=== PATIENT | male | born 1975 ===

== ENCOUNTER 2018-02-05 22:26 | Inpatient (IN) | payer OTHER, MEDICAID ==
[2018-02-06 00:05] LABS: BASO % 0.4 % (0.0-2.0); EOS # 0.1 K/uL (0.0-0.7); EOS % 0.6 % (0.0-4.0); HEMOGLOBIN 17.1 g/dL (12.0-18.0); LYMPH # 1.8 K/uL (1.0-4.3); LYMPH % 17.9 % (20.0-40.0); MEAN CORPUSCULAR HEMOGLOBIN 29.2 pg (27.0-31.0); MEAN PLATELET VOLUME 9.8 fl (7.2-11.7); MONO # 0.8 K/uL (0.0-0.8); MONO % 8.3 % (0.0-10.0); NEUT # 7.3 K/uL (1.8-7.0); NEUT % 72.8 % (50.0-75.0); NRBC % 0.4 % (0.0-0.0); RBC 5.84 Mil/uL (4.40-5.90); RED CELL DISTRIBUTION WIDTH 13.4 % (11.5-14.5); WHITE BLOOD COUNT 9.9 K/uL (4.8-10.8)
[2018-02-06 00:12] LABS: ALB/GLOB RATIO 1.2 (1.0-2.1); ALBUMIN 5.3 g/dL (3.5-5.0); ALT/SGPT 63 U/L (21-72); AST/SGOT 45 U/L (17-59); BLOOD UREA NITROGEN 19 mg/dl (9-20); CALCIUM 10.5 mg/dL (8.4-10.2); GFR NON-AFRICAN AMERICAN > 60
[2018-02-06 00:49] LABS: BARBITURATES, UR NEGATIVE (NEGATIVE); BENZODIAZEPINES, UR POSITIVE (NEGATIVE); OPIATES, UR NEGATIVE (NEGATIVE); PHENCYCLIDINE, UR NEGATIVE (NEGATIVE)
--- NOTE | 2018-02-06 01:11 | ED PDOC ---
HPI: Chest Pain Time Seen by Provider: 02/05/18 22:57 Chief Complaint (Nursing): Chest Pain Chief Complaint (Provider): Chest Pain History Per: Patient History/Exam Limitations: no limitations Additional Complaint(s): 42 y/o male presents to the ED complaining of chest pain. Patient had a traumatic injury and has been on disability since. 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 Patient reports he is currently seeing a therapist. He states his mood is explosive and labile with poor sleep patterns on suicidal thoughts, no plan. Patient attributes most of his frustration to having to endure the process to get his disability benefits. 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 Patient reports he had chest pain prior to arrival and took Xanax with some relief. He spoke to his therapist who advised him to come to ED. Past Medical History Reviewed: Historical Data, Nursing Documentation, Vital Signs Vital Signs: Last Vital Signs Temp 97.2 F L 02/05/18 22:34 Pulse 98 H 02/05/18 22:34 Resp 16 02/05/18 22:34 BP 144/93 H 02/05/18 22:34 Pulse Ox 98 02/05/18 22:34 - Medical History PMH: Chronic Pain (Headaches) - Surgical History Surgical History: Back Surgery (Spinal fusion lumbar spine) Other surgeries: Nose surgery - Family History Family History: States: Unknown Family Hx - Social History Current smoker - smoking cessation education provided: No Alcohol: None Drugs: Denies - Home Medications Home Medications: Ambulatory Orders Medication Instructions Recorded RX: Ciprofloxacin [Cipro] 500 mg PO BID 10/14/14 traMADol [Ultram] 50 mg PO Q6 #16 tab 10/14/14 - Allergies Allergies/Adverse Reactions: Allergies Allergy/AdvReac Type Severity Reaction Status Date / Time No Known Allergies Allergy Verified 02/05/18 22:34 Review of Systems ROS Statement: Except As Marked, All Systems Reviewed And Found Negative Cardiovascular: Positive for: Chest Pain Physical Exam - Reviewed Nursing Documentation Reviewed: Yes Vital Signs Reviewed: Yes - Physical Exam Appears: Positive for: Well, Non-toxic, No Acute Distress Head Exam: Positive for: ATRAUMATIC, NORMOCEPHALIC Skin: Positive for: Normal Color, Warm, DRY Eye Exam: Positive for: EOMI, Normal appearance, PERRL Neck: Positive for: Normal, Painless ROM, Supple Cardiovascular/Chest: Positive for: Regular Rate, Rhythm. Negative for: Murmur Respiratory: Positive for: Normal Breath Sounds. Negative for: Respiratory Distress Gastrointestinal/Abdominal: Positive for: Normal Exam, Soft. Negative for: Tenderness Back: Positive for: Normal Inspection. Negative for: L CVA Tenderness, R CVA Tenderness, Vertebral Tenderness Extremity: Positive for: Normal ROM. Negative for: Pedal Edema, Deformity Neurologic/Psych: Positive for: Alert, Oriented, Mood/Affect (Flat). Negative for: Motor/Sensory Deficits - Laboratory Results Result Diagrams: 02/05/18 23:45 02/05/18 23:45 - ECG O2 Sat by Pulse Oximetry: 98 (RA) Pulse Ox Interpretation: Normal Medical Decision Making Medical Decision Making: Time: 23:41 Initial Impression: 42 y/o with suicidal ideation Initial Plan: * EKG * Alcohol serum * CMP * Drug screen * Troponin * CBC w/ diff * Reglan 03:50 Labs reviewed no clinically significant abnormalities. Patient was evaluated by crisis and will be admitted for acute depression. Patient is medically stable for psychiatric admission. Scribe Attestation: Documented by Diego Lin acting as a scribe for Matthew Franco MD. Provider Scribe Attestation: All medical record entries made by the Scribe were at my direction and personally dictated by me. I have reviewed the chart and agree that the record accurately reflects my personal performance of the history, physical exam, medical decision making, and the department course for this patient. I have also personally directed, reviewed, and agree with the discharge instructions and disposition. Disposition - Clinical Impression Clinical Impression: Depression - Patient ED Disposition Is Patient to be Admitted: Yes - Disposition Disposition Time: 03:50 Condition: STABLE
[2018-02-06 08:19] VITALS: O2SAT 96
--- NOTE | 2018-02-06 08:34 | RAD ---
Date of service: 02/06/2018 HISTORY: admit COMPARISON: Chest radiographs 10/14/2014. FINDINGS: LUNGS: No active pulmonary disease. PLEURA: No significant pleural effusion identified, no pneumothorax apparent. CARDIOVASCULAR: No aortic atherosclerotic calcification present. Normal cardiac size. No pulmonary vascular congestion. OSSEOUS STRUCTURES: No significant abnormalities. VISUALIZED UPPER ABDOMEN: Normal. OTHER FINDINGS: None. IMPRESSION: No interval acute cardiopulmonary disease appreciated.
[2018-02-06] MEDS ORDERED: Magnesium Hydroxide Susp 30 ml UD PO PRN (09:22)
[2018-02-06] MEDS ORDERED: DiphenhydrAMINE 50 mg/ml Inj IM PRN (09:22)
[2018-02-06] MEDS ORDERED: Alum-Mag Hydrox-Simethicone Susp (30 mL) PO PRN (09:22)
--- NOTE | 2018-02-06 11:37 | PCM.PSYCH ---
Initial Psychiatric Evaluation - Initial Psychiatric Evaluation Type of Admission: Voluntary Legal Status: Capacity Chief Complaint (in patient's own words): "I'm depressed." Patient's Reaction to Hospitalization: HPI: 42 yo male w/ h/o depression, presents w/ worsening depression, suicidal ideation w/o current plan, sleep/appetite disturbances, hopelessness and chronic pain. He reports that his stressors include having to return back to work due to his workman's comp ending. He reports feeling anxious. Denies AH/VH/paranoia/HI. Collateral from ER: CW spoke to pt's , Belia BillOwurqmd-[phone], who stated pt has changed s kourtney his injury at work. She stated pt is very depressed and has been expressing SI. She stated pt's psychologist cleared her day yesterday just to give time to him due to him feeling SI and stated it was pt's psychologist who encouraged pt to come to ED. She stated pt has been withdrawn and does not do much anymore. She stated pt was doing two jobs and going to the gym, however, not he cannot do those things anymore. She stated she does not want him home in this condition and stated he needs psych admission. PPHx: No past psychiatric admission, h/o suicide attempt by attempting to jump in front of a truck. Currently prescribed Cymbalta, Wellbutrin, Amphetamine Salt, Xanax, Ambien, and Topamax (for headaches) by Dr. Kim PMHx: H/o falling 4 stories last year, tinnitis, chronic headaches/migraines ALL: NKDA FHx: Denies family history of mental illness SHx: Lives w/ and step son; denies drugs/etoh/cig use; on disability Current Medications: Active Medications Generic Name Dose Route Start Last Admin Trade Name Freq PRN Reason Stop Dose Admin Acetaminophen 650 mg 02/06/18 09:22 Tylenol 325mg Tab PO Q4 PRN Pain, moderate (4-7) Al Hydrox/Mg Hydrox/Simethicone 30 ml 02/06/18 09:22 Maalox Plus 30 Ml PO Q4 PRN Dyspepsia Diphenhydramine HCl 50 mg 02/06/18 09:22 Benadryl IM Q6 PRN Extrapyramidal S/S Unable PO Diphenhydramine HCl 50 mg 02/06/18 09:22 Benadryl PO Q6 PRN Extrapyramidal Symptoms Haloperidol 5 mg 02/06/18 09:22 Haldol PO Q4 PRN Agitation Haloperidol Lactate 5 mg 02/06/18 09:22 Haldol IM Q4 PRN Agitation, Unable to Take PO Lorazepam 2 mg 02/06/18 09:22 Ativan IM Q4 PRN Anxiety/Agitation,Unable PO Lorazepam 1 mg 02/06/18 09:24 Ativan PO Q6 PRN Anxiety Magnesium Hydroxide 30 ml 02/06/18 09:22 Milk Of Magnesia PO HS PRN Constipation Past Psychiatric History - Past Psychiatric History Pertinent Medical Hx (Current Medical&Sleep Prob, Allergies): Allergies Allergy/AdvReac Type Severity Reaction Status Date / Time No Known Allergies Allergy Verified 02/05/18 22:34 Alprazolam [Xanax] 0.5 mg PO BID PRN 02/06/18 Amphetamine Salt Combination [Adderall] 10 mg PO DAILY 02/06/18 DULoxetine [Cymbalta] 20 mg PO DAILY 02/06/18 Omeprazole 20 mg PO QAM 02/06/18 Topiramate [Trokendi Xr] 50 mg PO DAILY 02/06/18 Zolpidem Tartrate [Ambien] 12.5 mg PO HS 02/06/18 buPROPion SR [Wellbutrin SR 150 MG] 1 tab PO DAILY 02/06/18 Review of Systems - Psychiatric Psychiatric: Abnormal Sleep Pattern, Anhedonia, Anxiety, Change in Appetite, Depression, Difficulty Concentrating, Hopelessness, Irritability, Suicidal Ideation Mental Status Examination - Personal Presentation Personal Presentation: Looks stated age - Affect Affect: Constricted, Depressed - Motor Activity Motor Activity: Calm - Reliability in Providing Information Reliability in Providing Information: Fair - Speech Speech: Organized, Coherent - Mood Mood: Depressed - Formal Thought Process Formal Thought Process: No Impairment - Hallucinations/Delusions Additional comments: NO AH/VH/paranoia/delusions - Obsessions/Compulsions Obsessions: No Compulsions: No - Cognitive Functions Orientation: Person, Place, Situation, Time Sensorium: Alert Judgement: Intact, as evidence by: Insight regarding need for hospitalization Memory: Recent intact, as evidence by: Ability to recall events of the day - Risk Risk: Suicidal - Strength & Assets Inventory Strength & Assets Inventory: Family support, Cooperative DSM 5 DX - DSM 5 DSM 5 Diagnosis: Major Depressive Disorder - Recommended/Plan of Treatment Treatment Recommendations and Plan of Treatment: Major Depressive Disorder -Admit to psychiatry unit -Individual and group therapy -Psychoeducation -Increase Cymbalta, continue Wellbutrin -Continue Topamax for migraines -Hold Amphetamine and Xanax; can given Ativan PRN anxiety -Medicine consult -Disposition planning Projected ELOS: 7-10 days Discharge Plan and Discharge Criteria: Discharge when patient is psychiatrically stable - Smoking Cessation Smoking Cessation Initiated: No Reason for not providing: Not indicated
[2018-02-06] MEDS ORDERED: Pneumococcal 23-Valent Vaccine IM ONE (13:08)
--- NOTE | 2018-02-06 13:40 | CP.PCM.CON ---
History of Present Illness - History of Present Illness History of Present Illness: Chief Complaint : admitted to Psych bec of Suicidal ideation Hospitalist consulted to help manage medical problems HPI: 42 y/o gent with Hx of Work related Injury ( fall ) sustained injuries to his spine, knees and he also fractured his nose , s/p Lumbar Fusion , Nasal Bone Sx, was admitted for Depression and suicidal ideation. Patient states that since he had his Injuries and surgery , he has just been home and feels unproductive. He suffers from Chronic pain and this made him not able to do activities he used to do. Review of Systems - Review of Systems All systems: reviewed and no additional remarkable complaints except - Constitutional Constitutional: absent: Chills, Fever - EENT Eyes: absent: Change in Vision Ears: absent: Decreased Hearing, Ear Discharge Nose/Mouth/Throat: Nasal Trauma - Cardiovascular Cardiovascular: absent: Chest Pain, Dyspnea, Dyspnea on Exertion, Edema - Respiratory Respiratory: absent: Cough, Dyspnea, Hemoptysis - Gastrointestinal Gastrointestinal: absent: Abdominal Pain, Nausea, Vomiting - Genitourinary Genitourinary: absent: Dysuria, Hematuria - Musculoskeletal Musculoskeletal: Arthralgias, Back Pain, Myalgias, Stiffness - Integumentary Integumentary: absent: Rash - Neurological Neurological: absent: Dizziness, Headaches, Syncope - Psychiatric Psychiatric: Abnormal Sleep Pattern, Depression - Endocrine Endocrine: absent: Polydipsia, Polyphagia, Polyuria - Hematologic/Lymphatic Hematologic: absent: Easy Bleeding, Easy Bruising Past Patient History - Tetanus Immunizations Tetanus Immunization: Unknown - Past Medical History & Family History Past Medical History?: Yes Past Family History: Reviewed and not pertinent - Past Social History Smoking Status: Never Smoked Chewing Tobacco Use: No Cigar Use: No Alcohol: None Drugs: Denies Home Situation {Lives}: With Family Domestic Violence: Negative - CARDIAC Hx Cardiac Disorders: No Hx Hypertension: No - PULMONARY Hx Tuberculosis: No - NEUROLOGICAL HX Cerebrovascular Accident: No Hx Seizures: No Other/Comment: Lumbar Laminectomy - [facility] - HEENT Other/Comment: nose resconstruction - RENAL Hx Chronic Kidney Disease: No - ENDOCRINE/METABOLIC Hx Endocrine Disorders: No - HEMATOLOGICAL/ONCOLOGICAL Hx Blood Disorders: No Hx Cancer: No Hx Human Immunodeficiency Virus (HIV): No - INTEGUMENTARY Hx Dermatological Problems: No - MUSCULOSKELETAL/RHEUMATOLOGICAL Hx Falls: Yes (work accident) Hx Herniated Disk: Yes - GASTROINTESTINAL Hx Gastrointestinal Disorders: No - GENITOURINARY/GYNECOLOGICAL Hx Sexually Transmitted Disorders: No - PSYCHIATRIC Hx Anxiety: Yes Hx Depression: Yes Hx Substance Use: No - SURGICAL HISTORY Hx Surgeries: Yes Hx Orthopedic Surgery: Yes (lumbar fusion) Other/Comment: Nose reconstruction - ANESTHESIA Hx Anesthesia: Yes Hx Anesthesia Reactions: No Meds Allergies/Adverse Reactions: Allergies Allergy/AdvReac Type Severity Reaction Status Date / Time No Known Allergies Allergy Verified 02/05/18 22:34 - Medications Medications: Current Medications Acetaminophen (Tylenol 325mg Tab) 650 mg PO Q4 PRN PRN Reason: Pain, moderate (4-7) Al Hydrox/Mg Hydrox/Simethicone (Maalox Plus 30 Ml) 30 ml PO Q4 PRN PRN Reason: Dyspepsia Bupropion HCl (Wellbutrin Sr 150 Mg) 150 mg PO BID HARDEEP Diphenhydramine HCl (Benadryl) 50 mg IM Q6 PRN PRN Reason: Extrapyramidal S/S Unable PO Diphenhydramine HCl (Benadryl) 50 mg PO Q6 PRN PRN Reason: Extrapyramidal Symptoms Duloxetine HCl (Cymbalta) 60 mg PO DAILY HARDEEP Haloperidol (Haldol) 5 mg PO Q4 PRN PRN Reason: Agitation Haloperidol Lactate (Haldol) 5 mg IM Q4 PRN PRN Reason: Agitation, Unable to Take PO Lorazepam (Ativan) 2 mg IM Q4 PRN PRN Reason: Anxiety/Agitation,Unable PO Lorazepam (Ativan) 1 mg PO Q6 PRN PRN Reason: Anxiety Magnesium Hydroxide (Milk Of Magnesia) 30 ml PO HS PRN PRN Reason: Constipation Pantoprazole Sodium (Protonix Ec Tab) 20 mg PO QAM HARDEEP Topiramate (Topamax) 100 mg PO DAILY HARDEEP Zolpidem Tartrate (Ambien) 5 mg PO HS PRN PRN Reason: Insomnia Physical Exam - Constitutional Appears: No Acute Distress - Head Exam Head Exam: NORMAL INSPECTION, NORMOCEPHALIC - Eye Exam Eye Exam: EOMI, Normal appearance, PERRL Pupil Exam: NORMAL ACCOMODATION - ENT Exam ENT Exam: Mucous Membranes Moist, Normal External Ear Exam - Neck Exam Neck exam: Positive for: Full Rom. Negative for: Lymphadenopathy - Respiratory Exam Respiratory Exam: NORMAL BREATHING PATTERN. absent: Respiratory Distress - Cardiovascular Exam Cardiovascular Exam: REGULAR RHYTHM, +S1, +S2 - GI/Abdominal Exam GI & Abdominal Exam: Normal Bowel Sounds, Soft. absent: Tenderness - Extremities Exam Extremities exam: Positive for: full ROM, normal capillary refill, pedal pulses present. Negative for: calf tenderness - Back Exam Back exam: FULL ROM, vertebral tenderness. absent: CVA tenderness (L), CVA tenderness (R) - Neurological Exam Neurological exam: Alert, CN II-XII Intact, Oriented x3, Reflexes Normal - Psychiatric Exam Psychiatric exam: Flat Affect - Skin Skin Exam: Dry, Normal Color, Warm Results - Vital Signs Recent Vital Signs: Last Vital Signs Temp 98.4 F 02/06/18 09:00 Pulse 77 02/06/18 10:00 Resp 18 02/06/18 11:52 BP 122/75 02/06/18 10:00 Pulse Ox 96 02/06/18 09:00 - Labs Result Diagrams: 02/05/18 23:45 02/05/18 23:45 Labs: Laboratory Results - last 24 hr 02/05/18 02/05/18 02/06/18 23:45 23:45 00:04 WBC 9.9 RBC 5.84 Hgb 17.1 Hct 50.2 MCV 86.0 MCH 29.2 MCHC 34.0 RDW 13.4 Plt Count 301 D MPV 9.8 Neut % (Auto) 72.8 Lymph % (Auto) 17.9 L [place] % (Auto) 8.3 Eos % (Auto) 0.6 Baso % (Auto) 0.4 Neut # (Auto) 7.3 H Lymph # (Auto) 1.8 [place] # (Auto) 0.8 Eos # (Auto) 0.1 Baso # (Auto) 0.0 Sodium 142 Potassium 3.9 Chloride 100 Carbon Dioxide 25 Anion Gap 21 H BUN 19 Creatinine 1.2 Est GFR ( Amer) > 60 Est GFR (Non-Af Amer) > 60 Random Glucose 133 H Calcium 10.5 H Total Bilirubin 1.6 H AST 45 ALT 63 Alkaline Phosphatase 104 Troponin I < 0.0120 Total Protein 9.6 H Albumin 5.3 H Globulin 4.3 H Albumin/Globulin Ratio 1.2 Urine Opiates Screen Negative Urine Methadone Screen Negative Ur Barbiturates Screen Negative Ur Phencyclidine Scrn Negative Ur Amphetamines Screen Positive H U Benzodiazepines Scrn Positive U Oth Cocaine Metabols Negative U Cannabinoids Screen Negative Alcohol, Quantitative < 10 - EKG Data EKG Interpreted by: Myself EKG shows normal: Sinus rhythm Rate: Normal - Imaging and Cardiology Chest x-ray Status: Report reviewed by me Assessment & Plan (1) Depression Status: Chronic (2) Chronic pain Status: Chronic (3) History of lumbar spinal fusion Status: Chronic - Assessment and Plan (Free Text) Assessment: (1) Depression with Suicidal Ideation Status: Chronic Mgt per Psych Pt is on Wellbutrin, Cymbalta and Topamax (2) Chronic pain Status: Chronic Tylenol prn (3) History of lumbar spinal fusion Status: Chronic Pain mgt with Tylenol will eval if pain worsens
--- NOTE | 2018-02-06 15:12 | CARD ---
APPROVED REPORT Date of service: 02/05/2018 EKG Measurement Heart [id number] <Conclusion> Normal sinus rhythm Normal ECG
--- NOTE | 2018-02-06 17:32 | PCM.BM ---
<Reva Grace Richardson - Last Filed: 02/06/18 17:30> Treatment Plan Problems - Problems identified on initial assessmt self harm Date Initiated: 02/06/18 Time Initiated: 17:30 Assessment reference: HP, NA Status: Active feelings of worthlessness Date Initiated: 02/06/18 Time Initiated: 17:38 Assessment reference: HP, NA Status: Active anxiety Date Initiated: 02/06/18 Time Initiated: 17:39 Assessment reference: HP, NA Status: Active fear Date Initiated: 02/06/18 Assessment reference: HP, NA Status: Active inactivity intolerance Date Initiated: 02/06/18 Assessment reference: HP, NA Status: Active Treatment assets and liabiliti Patient Assests: cooperative, educated, good support system, cognitively intact Patient Liabilities: physical pain, other (trauma and is on disability) - Milieu Protocol Maintain good personal hygiene: daily Encourage regular showers, daily Remind patient to perform daily oral care, daily Assist patient to perform ADL's Maintain personal safety: every shift Educate patient to report safety concerns to staff, every shift Monitor environment for contraband/sharps Medication safety: Monitor for expected outcome, potential side effects: every shift, Assess barriers to learning: every shift, Assess readiness for medication education: every shift Milieu Narrative: Major Depressive Disorder -Admit to psychiatry unit -Individual and group therapy -Psychoeducation -Increase Cymbalta, continue Wellbutrin -Continue Topamax for migraines -Hold Amphetamine and Xanax; can given Ativan PRN anxiety -Medicine consult -Disposition planning Family Contact Family involvement: Family/SO is involved Family contact: Patient agrees to contact, Family has been contacted by patient - Goals for Treatment Patient goals for treatment: to improve his mood and cope with his injuries Discharge/Continuing Care - Treatment Team Participation Patient/Family/SO Statement: Major Depressive Disorder -Admit to psychiatry unit -Individual and group therapy -Psychoeducation -Increase Cymbalta, continue Wellbutrin -Continue Topamax for migraines -Hold Amphetamine and Xanax; can given Ativan PRN anxiety -Medicine consult -Disposition planning <Allyssa Fabian - Last Filed: 02/09/18 08:23> - Diagnosis (1) Major depressive disorder Status: Acute Interventions: Medication management, Individual and group therapy, Psychoeducation 02/09/18 08:23 <Santa Santana - Last Filed: 02/09/18 12:16> Family Contact Family involvement: Family/SO is involved Family contact: Patient agrees to contact, Family has been contacted by patient, Telephone contact initiated by staff Family contact name: Belia - spouse Family contacted how many times per week?: 2 Family contact comment: [phone] - Outside Agency Silvia Pace [facility] involvment: Information-sharing Agency contact number: [phone] - Goals for Treatment Patient goals for treatment: Pt's goal is to be free of suicidal thoughts/attempts. Pt's goal si to improve overall mood. Pt will develop a crisis plan share it with rivas people. Pt will list 3 emergency contacts who will be able to stay with him till a crisis passes. Pt will be free of suicide thoughts. Pt will develop strategies for thought distraction whe rimunating on the past. Discharge/Continuing Care - Education Needs Education Needs: Family Medication, Family Diagnosis/Disease Process, Family Coping Skills, Family Community resources, Family Personal Hygiene/Grooming, Family Aftercare Safety Plan, Patient Medication, Patient Diagnosis/Disease Process, Patient Coping Skills, Patient Community resources, Patient Personal Hygiene/Grooming, Patient Aftercare Safety Plan - Discharge Discharge Criteria: Tolerates medication w/o severe side effects, Free of Suicidal thoughts, Normal sleep pattern, Ability to care for self, Reduction of target symptoms Discharge to:: Home, With Family - Additional Comments 02/09/18 12:10 Pt seen and discussed in team meeting. Reason for hospitalization reviewed and discussed. Pt reported being referred to the ED due to suicide ideation. Pt reported he was referred by his psychologist. Pt talked about his work related injuries and accident that took place 1 year ago. Pt reported that he current feels dizzy and tired. Pt denied acute SI and HI. Pt reported that prior to admission "I did a stupid thing" referencing his suicide thoughts with a plan. Pt reported feeling limited and useless since the work related injury. At time of team meeting pt verbalized that he wishes to go home as he misses his family. When asked what changed in regards to his mood pt stated "I miss my family." Pt identified his spouse and son has his reason and motive to live. Pt reported that his mood is "good." Pt denied SI and HI. Pt denied AVH. Pt's medical and socia issues reviewed. Pt's medications reviewed. Tx plan reviewed and discussed. Pt provided bond writer with written consent to contact his psychologist, Silvia Pace in [place], [place]. Pt also provided bond writer with verbal authorization to contact his spouse, Belia ([phone]). Pt requesting to be discharged and 48 hour notice of intent to leave reviewed and discussed with pt. Pt signed 48 hour notice at 1043AM. to obtain collateral information. - Treatment Team Participation Discussed with Family/SO: No Was Patient/Family/SO present at Treatment Team Meeting: Yes
[2018-02-06] MEDS: buPROPion SR 150 MG TABLET PO SCH (18:11)
[2018-02-06] MEDS: Pantoprazole 20 mg EC Tab PO SCH (18:12)
[2018-02-07 07:28] LABS: LDL CHOLESTEROL 205 mg/dL (0-129)
[2018-02-07 07:32] LABS: T4 9.77 ug/dl (5.5-11.0)
[2018-02-07 07:54] LABS: ALB/GLOB RATIO 1.4 (1.0-2.1); ALT/SGPT 53 U/L (21-72); AST/SGOT 33 U/L (17-59); BLOOD UREA NITROGEN 23 mg/dl (9-20); CALCIUM 9.7 mg/dL (8.4-10.2); GFR NON-AFRICAN AMERICAN > 60; HDL CHOLESTEROL 45 MG/DL (30-70)
[2018-02-07] MEDS: Pantoprazole 20 mg EC Tab PO SCH (08:27)
--- NOTE | 2018-02-07 09:11 | PCM.PYCHPN ---
Psychiatric Progress Note - Psychiatric Progress Note Patient seen today, length of contact: pt seen and evaluated. Patient Chief Complaint: pt has been less depressed and less anxious and denies suicidal ideation..pt sometimes feels tired and has no motivation .pt has better insight into depr ession. Medication Change: No Medical Record Reviewed: Yes Mental Status Examination - Cognitive Function Orientation: Person, Place, Situation, Time Memory: Intact Attention: Poor Concentration: Poor Association: WNL - Mood Mood: Depressed - Affect Affect: Constricted, Depressed - Formal Thought Process Formal Thought Process: No Impairment - Suicidal Ideation Suicidal Ideation: No - Homicidal Ideation Homicidal Ideation: No Goal/Treatment Plan - Goal/Treatment Plan Progress Toward Problem(s) and Goals/Treatment Plan: will continue the current regimen of meds and engage pt in therapy and groups .
[2018-02-07] MEDS: buPROPion SR 150 MG TABLET PO SCH ×2 (11:51→17:31)
[2018-02-07] MEDS ORDERED: Influenza Vaccine (5 YR UP)/PF 60 MCG/0.5 ML SYR IM ONE (17:04)
[2018-02-08] MEDS: Pantoprazole 20 mg EC Tab PO SCH (08:20)
[2018-02-08] MEDS: buPROPion SR 150 MG TABLET PO SCH ×2 (08:20→16:35)
--- NOTE | 2018-02-08 14:19 | PCM.PYCHPN ---
Psychiatric Progress Note - Psychiatric Progress Note Patient seen today, length of contact: pt seen and evaluated. Patient Chief Complaint: pt still c/o feeling tired all the time and is concerned about it and pt says that it is not related to meds and is more because of depression and him being exhausted due to depression and pt says that he feels better and less anxious and denies suicidal ideation.. Medication Change: No Medical Record Reviewed: Yes Mental Status Examination - Cognitive Function Orientation: Person, Place, Situation, Time Attention: Poor Concentration: Poor Association: WNL Fund of Knowledge: WNL - Mood Mood: Depressed - Affect Affect: Constricted, Depressed - Formal Thought Process Formal Thought Process: No Impairment - Suicidal Ideation Suicidal Ideation: No - Homicidal Ideation Homicidal Ideation: No Goal/Treatment Plan - Goal/Treatment Plan Progress Toward Problem(s) and Goals/Treatment Plan: will continue to engage pt in theraoy and continue the current regimen of meds . Support and reassurance provided.
[2018-02-09] MEDS: Pantoprazole 20 mg EC Tab PO SCH (08:42)
[2018-02-09] MEDS: buPROPion SR 150 MG TABLET PO SCH ×2 (08:42→17:10)
--- NOTE | 2018-02-09 09:49 | PCM.PYCHPN ---
Psychiatric Progress Note - Psychiatric Progress Note Patient seen today, length of contact: Pt evaluated, case discussed w/ team, chart reviewed Patient Chief Complaint: "I'm feeling better." Problems Identified/Issues Discussed: Patient reports that his mood is improving. He denies acute suicidal ideation and states that he wants to live for his family. NO AH/VH/paranoia/delusions. Patient submitted a 48 hr letter requesting to be discharged. Medication Change: No Medical Record Reviewed: Yes Consults ordered or reviewed: Medicine consult Mental Status Examination - Cognitive Function Orientation: Person, Place, Situation, Time Memory: Intact Attention: WNL Concentration: WNL Association: [facility] Fund of Knowledge: [facility] Decription of patient's judgement and insights: Fair I/J - Mood Mood: Neutral - Affect Affect: Constricted - Formal Thought Process Formal Thought Process: No Impairment Psychotic Thoughts and Behaviors: No AH/VH/paranoia/delusions - Suicidal Ideation Suicidal Ideation: No - Homicidal Ideation Homicidal Ideation: No Goal/Treatment Plan - Goal/Treatment Plan Need for Continued Stay: Remain at risks for inpatient hospitalization Progress Toward Problem(s) and Goals/Treatment Plan: Major Depressive Disorder -Individual and group therapy -Psychoeducation -Continue Cymbalta, continue Wellbutrin -Continue Topamax for migraines -Hold Amphetamine salt and Xanax; can given Ativan PRN anxiety -Medicine consult -Disposition planning- likely discharge tomorrow as patient submitted a 48 hr letter and does not currently meet criteria for involuntary psychiatric commitment. Estimated Date of D/C: 02/10/18
[2018-02-09 15:49] VITALS: RESP 18
[2018-02-10 06:04] VITALS: BP 149/95; PULSE 82; TEMP 97.2
[2018-02-10] MEDS: buPROPion SR 150 MG TABLET PO SCH (08:17)
[2018-02-10] MEDS: Pantoprazole 20 mg EC Tab PO SCH (08:17)
--- NOTE | 2018-02-10 08:28 | PCM.PYCHDC ---
Mental Status Examination - Mental Status Examination Orientation: Person, Place, Situation, Time Memory: Intact Mood: Neutral Affect: Broad Speech: Appropriate Attention: WNL Concentration: WNL Association: WNL Fund of Knowledge: WNL Formal Thought Process: No Impairment Description of patient's judgement and insight: Good I/J Psychotic Thoughts and Behaviors: No AH/VH/paranoia/delusions Suicidal Ideation: No Current Homicidal Ideation?: No Discharge Summary - Discharge Note Reason for Hospitalization: HPI: 42 yo male w/ h/o depression, presents w/ worsening depression, suicidal ideation w/o current plan, sleep/appetite disturbances, hopelessness and chronic pain. He reports that his stressors include having to return back to work due to his workman's comp ending. He reports feeling anxious. Denies AH/VH/paranoia/HI. Collateral from ER: CW spoke to pt's , Belia BillObqgupy-[phone], who stated pt has changed since his injury at work. She stated pt is very depressed and has been expressing SI. She stated pt's psychologist cleared her day yesterday just to give time to him due to him feeling SI and stated it was pt's psychologist who encouraged pt to come to ED. She stated pt has been withdrawn and does not do much anymore. She stated pt was doing two jobs and going to the gym, however, n ot he cannot do those things anymore. She stated she does not want him home in this condition and stated he needs psych admission. PPHx: No past psychiatric admission, h/o suicide attempt by attempting to jump in front of a truck. Currently prescribed Cymbalta, Wellbutrin, Amphetamine Salt, Xanax, Ambien, and Topamax (for headaches) by Dr. Kim PMHx: H/o falling 4 stories last year, tinnitis, chronic headaches/migraines ALL: NKDA FHx: Denies family history of mental illness SHx: Lives w/ and step son; denies drugs/etoh/cig use; on disability Consultations:: List each consultation separately and include: 1. Reason for request. 2. Findings. 3. Follow-up Consultations: Medicine consult Summary of Hospital Course include:: 1. Description of specific treatment plan utilized for patients during their course of treatmen. 2. Summarize the time- course for resolution of acute symptoms and/or regressed behaviors. 3. Describe issues identified and worked on during hospitalization. 4. Describe medication utilized. 5. Describe medical problems identified and treated. 6. Reassessment of suicide risk Summary of Hospital Course: Patient was stabilized on Wellbutrin 300 mg Daily and Cymbalta 60 mg PO Daily. Individual and group therapy were provided. Patient denies de pression/anxiety/AH/VH/SI/HI. He submitted a 48 hr letter requesting to be discharged yesterday and he is currently psychiatrically stable for discharge. - Diagnosis (1) Major depressive disorder Current Visit: Yes Status: Chronic - Final Diagnosis (DSM 5) Condition upon Discharge: STABLE DSM 5: Major Depressive Disorder Disposition: HOME/ ROUTINE Follow-up Treatment Plan: Major Depressive Disorder -Individual and group therapy -Psychoeducation -Continue Cymbalta, continue Wellbutrin -Continue Topamax for migraines -Stop Amphetamine salt and Xanax -Discharge to home with outpatient follow-up Prescriptions/Medication Reconciliation: buPROPion XL [Wellbutrin XL] 300 mg PO DAILY #30 t24 DULoxetine [Cymbalta] 60 mg PO DAILY #30 ecc - Smoking Cessation Smoking Cessation Medication prescribed: No Reason for not providing: Not indicated - Antipsychotic Medications Pt discharged on 2 or more routine antipsychotic medications: No
== END 2018-02-10 12:15 | disposition home or self-care (01) | DRG 881 ==
LOC: H.ER 22:26 → H.ERHOLD 02-06 03:47 → H.STEP 02-06 09:12
PROVIDERS: ADMIT Psychiatry & Neurology Psychiatry; ATTEND Psychiatry & Neurology Psychiatry
PROC: GZHZZZZ Group Psychotherapy (ICD-10-PCS; principal; 2018-02-06)
PROC: GZ56ZZZ Individual Psychotherapy, Supportive (ICD-10-PCS; 2018-02-06)
PROC: 3E0234Z Introduction of Serum, Toxoid and Vaccine into Muscle, Percutaneous Approach (ICD-10-PCS; 2018-02-07)
PROC: 3E02340 Introduction of Influenza Vaccine into Muscle, Percutaneous Approach (ICD-10-PCS; 2018-02-07)
DX: F32.9 Major depressive disorder, single episode, unspecified (principal); R45.851 Suicidal ideations; G89.29 Other chronic pain; G43.909 Migraine, unspecified, not intractable, without status migrainosus; F41.9 Anxiety disorder, unspecified; Z98.1 Arthrodesis status; Z23 Encounter for immunization